=== PATIENT | female | born 1985 | race Asian ===

== ENCOUNTER 2016-10-20 00:21 | Inpatient (IN) | payer SELFPAY ==
[~2016-10-20] VITALS: Ht 172.7 cm; Wt 81.2 kg
[2016-10-20] MEDS ORDERED: CALC500C17 PO (01:27)
[2016-10-20] MEDS ORDERED: IRON65TA11 PO (01:27)
[2016-10-20] MEDS ORDERED: VITD1000 PO (01:27)
[2016-10-20] MEDS ORDERED: LACTATED RINGERS 500 ML IV ONE (01:55)
[2016-10-20] MEDS ORDERED: METHYLERGONOVINE 0.2 MG/ML AMP IM PRN ×2 (01:55→19:50)
[2016-10-20] MEDS ORDERED: AMPICILLIN 2,000 MG in NACL 0.9% MINI-BAG PLUS 100 ML IV SCH (01:55)
[2016-10-20] MEDS ORDERED: PROMETHAZINE 25 MG/ML VIAL IVP PRN (01:55)
[2016-10-20] MEDS ORDERED: OXYTOCIN 10 UNITS/ML VIAL IM SCH (01:55)
[2016-10-20] MEDS ORDERED: NALBUPHINE HYDROCHLORIDE 10 MG/ML VIAL IVP PRN (01:55)
[2016-10-20] MEDS ORDERED: CARBOPROST 250 MCG/ML AMP IM PRN (01:55)
[2016-10-20 02:20] LABS: BASOPHILS # (AUTO) 0.3 K/uL (0.00-0.22); EOSINOPHILS # (AUTO) 0.2 K/uL (0-0.4); EOSINOPHILS % (AUTO) 2.2 % (0.0-4.0); HEMATOCRIT 38.7 % (36-48); HEMOGLOBIN 13.2 g/dL (12.0-16.0); LYMPHOCYTES # (AUTO) 2.1 K/uL (2.5-16.5); LYMPHOCYTES % (AUTO) 21.5 % (20.5-51.1); MEAN CORPUSCULAR HEMOGLOBIN 33 pg (27-31); MEAN CORPUSCULAR HGB CONC 34 g/dL (33-37); MEAN CORPUSCULAR VOLUME 97 fL (80-94); MONOCYTES # (AUTO) 0.4 K/uL (0.8-1.0); MONOCYTES % (AUTO) 4.4 % (1.7-9.3); NEUTROPHILS # (AUTO) 6.8 K/uL (1.8-7.7); NEUTROPHILS % (AUTO) 68.9 % (42.2-75.2); PLATELET COUNT (AUTO) 252 K/uL (140-450); RED BLOOD CELL COUNT(AUTO) 3.97 MIL/uL (4.20-5.40); RED CELL DISTRIBUTION WIDTH 11.8 % (11.6-13.7); WHITE BLOOD COUNT (AUTO) 9.8 K/uL (4.8-10.8)
[2016-10-20 02:24] LABS: APPEARANCE,URINE CLEAR (CLEAR); BILIRUBIN,URINE NEGATIVE (NEGATIVE); BLOOD, URINE NEGATIVE (NEGATIVE); COLOR,URINE YELLOW (YELLOW); LEUKOCYTE ESTERASE ,URINE 1+ (NEGATIVE); NITRITE, URINE NEGATIVE (NEGATIVE); UGLUCOSE NEGATIVE (NEGATIVE)
[2016-10-20] MEDS ORDERED: MISOPROSTOL 25 MCG TAB ONE (02:24)
[2016-10-20] MEDS ORDERED: AMPICILLIN 2,000 MG VIAL ONE (02:36)
[2016-10-20 02:50] LABS: ALBUMIN 2.9 g/dL (3.4-5.0); ANION GAP 14.7 (8-16); CARBON DIOXIDE 20.9 mmol/L (21-32); CREATININE 0.6 mg/dL (0.6-1.3); POTASSIUM 3.6 mmol/L (3.5-5.1); TOTAL BILIRUBIN 0.3 mg/dL (0.0-1.0)
[2016-10-20 02:53] LABS: RBC,URINE 0-5 (RARE) /HPF (0-5)
[2016-10-20 03:15] VITALS: BP 115/71
[2016-10-20] MEDS ORDERED: MISOPROSTOL 25 MCG TAB VG SCH (04:00)
[2016-10-20] MEDS ORDERED: TERBUTALINE 2.5 MG TAB ONE (05:10)
[2016-10-20] MEDS ORDERED: TERBUTALINE 1 MG/ML VIAL SUBQ SCH (06:05)
[2016-10-20] MEDS ORDERED: TERBUTALINE 1 MG/ML VIAL SUBQ ONE (06:12)
[2016-10-20] MEDS ORDERED: AMPICILLIN 1,000 MG VIAL ONE ×3 (06:12→15:52)
[2016-10-20] MEDS ORDERED: OXYTOCIN 20 UNITS/LR PREMIX 1,000 ML IV ONE (06:58)
[2016-10-20] MEDS ORDERED: ROPIVACAINE 0.2%/NS PREMIX 250 ML EPI ONE (07:24)
[2016-10-20] MEDS: LACTATED RINGERS 1,000 ML IV SCH ×2 (07:59→14:57)
[2016-10-20 08:18] LABS: RAPID PLASMA REAGIN NON-REACTIVE (Non Reactiv)
--- NOTE | 2016-10-20 08:42 | NUR ---
PATIENT HAS BEEN SCREENED AND CATEGORIZED LOW NUTRITION RISK. PATIENT WILL BE SEEN WITHIN 7 DAYS OF ADMISSION. 10/26/[address]
[2016-10-20] MEDS ORDERED: OXYTOCIN 20 UNITS in LACTATED RINGERS 1,000 ML IV SCH (09:35)
[2016-10-20] MEDS: AMPICILLIN 1,000 MG in NACL 0.9% MINI-BAG PLUS 50 ML IV SCH ×2 (11:17→15:48)
[2016-10-20] MEDS ORDERED: OXYTOCIN 10 UNITS/ML VIAL ONE (16:44)
[2016-10-20] MEDS ORDERED: oxyCODONE/APAP 5/325 MG 1 TAB TAB PO PRN (19:50)
[2016-10-20] MEDS ORDERED: BENZOCAINE/MENTHOL 20%-0.5% 60 GM CAN TP PRN (19:50)
[2016-10-20] MEDS ORDERED: TEMAZEPAM 15 MG CAP PO PRN (19:50)
[2016-10-20] MEDS ORDERED: HYDROcodone/APAP 5/325 MG 1 TAB TAB PO PRN (19:50)
[2016-10-20] MEDS ORDERED: MEASLES, MUMPS, AND RUBELLA 1 VIAL SQVAC PRN (19:50)
[2016-10-20] MEDS: IBUPROFEN 800 MG TAB PO PRN (20:35)
[2016-10-20] MEDS ORDERED: IBUPROFEN 800 MG TAB ONE (20:41)
[2016-10-20] MEDS ORDERED: DOCUSATE SOD/SENNA 50/8.6 MG 1 TAB PO SCH (21:00)
[2016-10-21 06:16] LABS: HEMATOCRIT 33.6 % (36-48); HEMOGLOBIN 11.6 g/dL (12.0-16.0)
[2016-10-21] MEDS: IBUPROFEN 800 MG TAB PO PRN (06:18)
[2016-10-22] MEDS: IBUPROFEN 800 MG TAB PO PRN ×3 (02:48→13:03)
[2016-10-22] MEDS ORDERED: IBUP-1842 PO (09:47)
== END 2016-10-22 16:30 | disposition home or self-care (01) | DRG 775 ==
LOC: MLD 00:21 → MFCC 21:40
PROVIDERS: ADMIT Obstetrics & Gynecology; ATTEND Obstetrics & Gynecology
PROC: 3E0R3CZ (ICD-10-PCS; principal; 2016-10-20)
PROC: 10E0XZZ Delivery of Products of Conception, External Approach (ICD-10-PCS; 2016-10-20)
PROC: 10907ZC Drainage of Amniotic Fluid, Therapeutic from Products of Conception, Via Natural or Artificial Opening (ICD-10-PCS; 2016-10-20)
PROC: 0W8NXZZ Division of Female Perineum, External Approach (ICD-10-PCS; 2016-10-20)
PROC: 00HU33Z Insertion of Infusion Device into Spinal Canal, Percutaneous Approach (ICD-10-PCS; 2016-10-20)
DX: O48.0 Post-term pregnancy (principal); Z37.0 Single live birth; Z3A.40 40 weeks gestation of pregnancy
CPT/HCPCS: 36415; 51702; 59200; 59409; 80053; 81001; 85018; 85025; 86592; 86762; 86886; 86900; 86901; 87086; 87340; 87653-90; 90707; 90715; J0290; J2590; J2795; J3105; J7120